=== PATIENT | male | born 1965 | race Caucasian/White ===

== ENCOUNTER 2016-10-18 17:11 | Emergency (ER) | payer BC ==
[~2016-10-18] VITALS: Ht 167.6 cm; Wt 81.1 kg
[~2016-10-18 17:11] MED LIST: ALL300 PO; ASPCH81 PO; EZET10TA63 PO; GLC500 PO; INDO1CAP34 PO; ULT50HP PO
[2016-10-18 17:15] VITALS: TEMP 36.3; Ht 167.6 cm; Wt 81.1 kg
[2016-10-18] MEDS ORDERED: ASPI-461 PO (17:56)
[2016-10-18] MEDS ORDERED: ALL300 PO (17:56)
[2016-10-18] MEDS ORDERED: METF1000 PO (17:56)
[2016-10-18 18:47] LABS: BASO % 1.2 %; BASO ABS # 0.09 K/uL (0-0.2); COMPLETE YES; EOS % 2.2 %; HEMATOCRIT 40.8 % (42-52); IG% 0.1 %; LYMPH % 31.3 %; MEAN CELL VOLUME 85.9 fL (80-100); MEAN CORPUSCULAR HEMOGLOBIN 31.4 pg (25-34); MEAN CORPUSCULAR HGB CONC 36.5 g/dl (32-36); MEAN PLATELET VOLUME 10.3 fL (7.4-10.4); MONO % 5.2 %; PLATELET COUNT 185 K/uL (130-400); RED BLOOD COUNT 4.75 M/uL (4.7-6.1); WHITE BLOOD COUNT 7.68 K/uL (4.8-10.8)
--- NOTE | 2016-10-18 18:48 | DIAGNOSTIC IMAGING REPORT ---
CHEST ONE VIEW PORTABLE CLINICAL HISTORY: EVALUATE ALTERED MENTAL STATUS/WEAKNESS dyspnea COMPARISON STUDY: No previous studies for comparison. FINDINGS: The bones soft tissues and hemidiaphragms are normal. The cardiomediastinal silhouette is normal. The lungs are clear. The pulmonary vasculature is normal. IMPRESSION: Negative chest. Electronically signed by: Trever Issa M.D. 10/18/2016 6:46 PM Dictated Date/Time: 10/18/2016 6:45 PM
[2016-10-18 18:58] LABS: PROTHROMBIN TIME (PATIENT) 10.5 SECONDS (9.0-12.0)
[2016-10-18 19:03] LABS: URINE APPEARANCE CLEAR (CLEAR); URINE BILIRUBIN NEG (NEG); URINE COLOR YELLOW; URINE EPITHELIAL CELL AUTO 0-5 /lpf (0-5); URINE NITRITE NEG (NEG); URINE PH 7.5 (4.5-7.5); UROBILINOGEN NEG (NEG); ZZUR CULT IF INDIC CLEAN CATCH NO
[2016-10-18 19:04] LABS: MANUAL MICROSCOPIC REQUIRED? NO; REVIEW REQ? NO
[2016-10-18 19:08] LABS: ALT/SGPT 45 U/L (12-78); BLOOD UREA NITROGEN 9 mg/dl (7-18); BUN/CREATININE RATIO 9.7 (10-20); CALCIUM 9.7 mg/dl (8.5-10.1); CARBON DIOXIDE 27 mmol/L (21-32); CHLORIDE 103 mmol/L (98-107); CREATININE 0.88 mg/dl (0.60-1.40); GLUCOSE 98 mg/dl (70-99); MAGNESIUM 2.3 mg/dl (1.8-2.4); POTASSIUM 3.7 mmol/L (3.5-5.1); SODIUM 140 mmol/L (136-145)
--- NOTE | 2016-10-18 19:11 | DIAGNOSTIC IMAGING REPORT ---
HEAD CT NONCONTRAST CT DOSE: 601.98 mGy.cm HISTORY: EVALUATE ALTERED MENTAL STATUS/WEAKNESS TECHNIQUE: Multiaxial CT images of the head were performed without the use of intravenous contrast. Comparison: None. Findings: The paranasal sinuses and mastoid air cells are clear. The calvarium and skull base are intact. The ventricles and sulci are within normal limits. There is no mass, hematoma, midline shift, or acute infarct. Impression: No acute intracranial abnormality. Electronically signed by: Trever Issa M.D. 10/18/2016 7:10 PM Dictated Date/Time: 10/18/2016 7:10 PM
[2016-10-18 19:17] LABS: ALKALINE PHOSPHATASE 75 U/L (45-117); AST/SGOT 23 U/L (15-37); CKMB/CK RATIO 1.1 (0-3.0); THYROID STIMULATING HORMONE 0.963 uIu/ml (0.300-4.500)
--- NOTE | 2016-10-18 19:50 | DIAGNOSTIC IMAGING REPORT ---
BILATERAL CAROTID DOPPLER STUDY HISTORY: Mental status change ti COMPARISON: None. TECHNIQUE: Real-time, grayscale, and color Doppler sonography of the carotid arteries was performed. Imaging reviewed in the transverse and longitudinal planes. All measurements were calculated based on NASCET criteria. FINDINGS: Antegrade flow is seen in the bilateral vertebral arteries. The brachial pressures are hemodynamically similar. The peak systolic velocity within the right ICA is 74. The right systolic ratio is 1.1. The peak systolic velocity within the left ICA is 58. The left systolic ratio is 0.8. IMPRESSION: No hemodynamically significant stenosis seen within the carotid arteries. Electronically signed by: Trever Issa M.D. 10/18/2016 7:49 PM Dictated Date/Time: 10/18/2016 7:48 PM
--- NOTE | 2016-10-18 20:17 | EMERGENCY ROOM VISIT NOTE ---
History Report prepared by Norma: Rakesh Desouza Under the Supervision of: Dr. Mehul Miller D.O. First contact with patient: 17:54 Chief Complaint: REFERRED BY DOCTOR Stated Complaint: L EYE BLEED, POSSIBLE STROKE- PHYSICIAN REFERRED History of Present Illness The patient is a 50 year old male who presents to the Emergency Room with complaints of intermittent left eye "shadow" beginning 2-3 weeks prior to arrival. The patient states he first noticed a shadow in his left eye while driving, and then it went away. He notes he experiences this "shadow" 2-3 times a day. The patient notes he saw his eye doctor, Dr. Baptiste, at [facility] today for his diabetic eye exam, and she found an occlusion. 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 The patient denies experiencing any other symptoms. He notes he takes a baby aspirin a day. 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 A total of 10 systems reviewed and were otherwise negative. Past Medical & Surgical Medical Problems: (1) Diab Nataly Wo Compl, Type Ii Or Unspec Type, Uncontrolled (2) Diverticulitis Colon (W/O Ment Of Hemorrhage) (3) Gout Nos (4) Lumbago (5) Mixed Hyperlipidemia (6) Pneumonia (7) Tobacco Use Disorder Surgical Problems: (1) No significant past surgical history Family History Diabetes mellitus Heart disease Social History Smoking Status: Never Smoker Alcohol Use: occasionally Drug Use: none Marital Status: Housing Status: lives with family Occupation Status: employed Current/Historical Medications Scheduled Allopurinol (Allopurinol), 300 MG PO DAILY Aspirin (Aspirin), 81 MG PO DAILY Ezetimibe (Zetia), 10 MG PO DAILY Metformin Hcl (Glucophage), 1,000 MG PO DAILY Scheduled PRN Indomethacin (Indomethacin), 50 MG PO TID PRN for INFLAMMATIOM Allergies Coded Allergies: Sulfamethoxazole (Verified Allergy, Unknown, 10/18/16) Replaces SULFAMETHOXAZ Trimethoprim (Verified Allergy, Unknown, 10/18/16) Replaces SULFAMETHOXAZ Physical Exam Vital Signs Date Time Temp Pulse Resp B/P Pulse Ox O2 Delivery O2 Flow Rate FiO2 10/18/16 19:49 65 150/89 100 Room Air 10/18/16 18:18 61 10/18/16 17:15 36.3 79 18 155/94 99 Room Air Physical Exam VITAL SIGNS: were reviewed as above. GENERAL:Non-toxic in appearance. SKIN: Warm dry and pink. HEAD: Normocephalic and atraumatic. OROPHARYNX: Is clear and moist NECK: Supple without lymphadenopathy or meningismus. LUNGS: clear. HEART: Regular rate and rhythm. ABDOMEN: Soft and nontender. EXTREMITIES: Warm and well perfused. NEUROLOGICALLY: Awake alert and oriented without focal deficit. Cranial nerves 2 -12 are intact. There is no pronator drift. Cerebellar testing is within normal limits. There is no nystagmus. There is no facial droop. Speech is clear. Vision is grossly normal. MUSCULOSKELETAL: Good muscle tone. No evidence of trauma. Medical Decision & Procedures ER Provider Diagnostic Interpretation: Radiology results as stated below per my review and radiologist interpretation: CHEST ONE VIEW PORTABLE CLINICAL HISTORY: EVALUATE ALTERED MENTAL STATUS/WEAKNESS dyspnea COMPARISON STUDY: No previous studies for comparison. FINDINGS: The bones soft tissues and hemidiaphragms are normal. The cardiomediastinal silhouette is normal. The lungs are clear. The pulmonary vasculature is normal. IMPRESSION: Negative chest. Electronically signed by: Trever Issa M.D. 10/18/2016 6:[address] CT DOSE: 601.98 mGy.cm HISTORY: EVALUATE ALTERED MENTAL STATUS/WEAKNESS TECHNIQUE: Multiaxial CT images of the head were performed without the use of intravenous contrast. Comparison: None. Findings: The paranasal sinuses and mastoid air cells are clear. The calvarium and skull base are intact. The ventricles and sulci are within normal limits. There is no mass, hematoma, midline shift, or acute infarct. Impression: No acute intracranial abnormality. Electronically signed by: Trever Issa M.D. 10/18/2016 7:10 PM BILATERAL CAROTID DOPPLER STUDY HISTORY: Mental status change ti COMPARISON: None. TECHNIQUE: Real-time, grayscale, and color Doppler sonography of the carotid arteries was performed. Imaging reviewed in the transverse and longitudinal planes. All measurements were calculated based on NASCET criteria. FINDINGS: Antegrade flow is seen in the bilateral vertebral arteries. The brachial pressures are hemodynamically similar. The peak systolic velocity within the right ICA is 74. The right systolic ratio is 1.1. The peak systolic velocity within the left ICA is 58. The left systolic ratio is 0.8. IMPRESSION: No hemodynamically significant stenosis seen within the carotid arteries. Electronically signed by: Trever Issa M.D. 10/18/2016 7:49 PM Laboratory Results 10/18/16 18:30 Red Blood Count 4.75, Mean Corpuscular Volume 85.9, Mean Corpuscular Hemoglobin 31.4, Mean Corpuscular Hemoglobin Concent 36.5, Mean Platelet Volume 10.3, Neutrophils (%) (Auto) 60.0, Lymphocytes (%) (Auto) 31.3, Monocytes (%) (Auto) 5.2, Eosinophils (%) (Auto) 2.2, Basophils (%) (Auto) 1.2, Neutrophils # (Auto) 4.61, Lymphocytes # (Auto) 2.40, Monocytes # (Auto) 0.40, Eosinophils # (Auto) 0.17, Basophils # (Auto) 0.09 10/18/16 18:30 Test 10/18/16 18:30 10/18/16 18:40 10/18/16 19:45 White Blood Count 7.68 K/uL (4.8-10.8) Red Blood Count 4.75 M/uL (4.7-6.1) Hemoglobin 14.9 g/dL (14.0-18.0) Hematocrit 40.8 % (42-52) Mean Corpuscular Volume 85.9 fL (80-100) Mean Corpuscular Hemoglobin 31.4 pg (25-34) Mean Corpuscular Hemoglobin Concent 36.5 g/dl (32-36) Platelet Count 185 K/uL (130-400) Mean Platelet Volume 10.3 fL (7.4-10.4) Neutrophils (%) (Auto) 60.0 % Lymphocytes (%) (Auto) 31.3 % Monocytes (%) (Auto) 5.2 % Eosinophils (%) (Auto) 2.2 % Basophils (%) (Auto) 1.2 % Neutrophils # (Auto) 4.61 K/uL (1.4-6.5) Lymphocytes # (Auto) 2.40 K/uL (1.2-3.4) Monocytes # (Auto) 0.40 K/uL (0.11-0.59) Eosinophils # (Auto) 0.17 K/uL (0-0.5) Basophils # (Auto) 0.09 K/uL (0-0.2) RDW Standard Deviation 39.2 fL (36.4-46.3) RDW Coefficient of Variation 12.4 % (11.5-14.5) Immature Granulocyte % (Auto) 0.1 % Immature Granulocyte # (Auto) 0.01 K/uL (0.00-0.02) Prothrombin Time 10.5 SECONDS (9.0-12.0) Prothromb Time International Ratio 1.0 (0.9-1.1) Activated Partial Thromboplast Time 24.7 SECONDS (21.0-31.0) Partial Thromboplastin Ratio 1.0 Anion Gap 10.0 mmol/L (3-11) Est Creatinine Clear Calc Drug Dose 98.2 ml/min Estimated GFR () 114.5 Estimated GFR (Non- 98.8 BUN/Creatinine Ratio 9.7 (10-20) Calcium Level 9.7 mg/dl (8.5-10.1) Magnesium Level 2.3 mg/dl (1.8-2.4) Total Bilirubin 0.5 mg/dl (0.2-1) Direct Bilirubin < 0.1 mg/dl (0-0.2) Aspartate Amino Transf (AST/SGOT) 23 U/L (15-37) Alanine Aminotransferase (ALT/SGPT) 45 U/L (12-78) Alkaline Phosphatase 75 U/L (45-117) Total Creatine Kinase 87 U/L (39-308) Creatine Kinase MB 1.0 ng/ml (0.5-3.6) Creatine Kinase MB Ratio 1.1 (0-3.0) Troponin I < 0.015 ng/ml (0-0.045) Total Protein 7.9 gm/dl (6.4-8.2) Albumin 4.8 gm/dl (3.4-5.0) Lipase 286 U/L (73-393) Thyroid Stimulating Hormone (TSH) 0.963 uIu/ml (0.300-4.500) Urine Color YELLOW Urine Appearance CLEAR (CLEAR) Urine pH 7.5 (4.5-7.5) Urine Specific [place] 1.000 (1.000-1.030) Urine Protein NEG (NEG) Urine Glucose (UA) NEG (NEG) Urine Ketones NEG (NEG) Urine Occult Blood NEG (NEG) Urine Nitrite NEG (NEG) Urine Bilirubin NEG (NEG) Urine Urobilinogen NEG (NEG) Urine Leukocyte Esterase NEG (NEG) Urine WBC (Auto) 0 /hpf (0-5) Urine RBC (Auto) 0-4 /hpf (0-4) Urine Hyaline Casts (Auto) 0 /lpf (0-5) Urine Epithelial Cells (Auto) 0-5 /lpf (0-5) Urine Bacteria (Auto) NEG (NEG) Laboratory results as stated above per my review. ECG Indication: other (vision change) Rate (beats per minute): 60 Rhythm: normal sinus Findings: no ectopy, other (no acute injury) ED Course 1755: Previous medical records were reviewed. The patient was evaluated in room A9B. A complete history and physical examination was performed. 2018: On reevaluation, the patient is doing well. I discussed the results and findings with the patient. He verbalized agreement of the treatment plan. The patient was discharged home. Medical Decision Differential includes acute coronary syndrome, myocardial infarction, CVA, TIA, anemia, infection, pneumonia, UTI, pyelonephritis, poor nutrition, dehydration, electrolyte disturbance,hypoglycemia. This is a 50-year-old male who presents to the ED with a chief complaint of needing an evaluation for CVA. The patient had an optometry appointment today. 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 The patient was told to follow-up with PCP for evaluation but was unable to be checked tomorrow. The patient was referred here. The patient has no stroke symptoms. He has had some haziness in his left eye for several weeks. Neuro exam today is normal. The patient has no specific complaints. A carotid Doppler study was negative. CT scan of the brain was negative for acute disease as well as a chest x-ray. An EKG shows a normal sinus rhythm. Blood work including a CBC, complete metabolic panel, troponin, TSH were normal as was urine. The patient was told the results. He will continue taking an aspirin a day. He is to follow-up with his PCP for recheck next week. Impression Primary Impression: Stroke-like episode Scribe Attestation The scribe's documentation has been prepared under my direction and personally reviewed by me in its entirety. I confirm that the note above accurately reflects all work, treatment, procedures, and medical decision making performed by me. Departure Information Dispostion Home / Self-Care Referrals Reilly Ag M.D. (PCP) Forms HOME CARE DOCUMENTATION FORM, IMPORTANT VISIT INFORMATION, WORK / SCHOOL INSTRUCTIONS Patient Instructions My [facility] Additional Instructions Follow-up with your doctor next week for recheck. Return for any concerns. Continue aspirin.
[2016-10-18 20:31] VITALS: BP 136/89; PULSE 60; O2SAT 99
== END 2016-10-18 20:32 | disposition home or self-care (01) ==
LOC: C.EDB 17:12 → C.EDA 20:32
DX: H57.8 Other specified disorders of eye and adnexa (principal); M10.9 Gout, unspecified; E11.9 Type 2 diabetes mellitus without complications; E78.5 Hyperlipidemia, unspecified; F17.200 Nicotine dependence, unspecified, uncomplicated; Z79.82 Long term (current) use of aspirin

== ENCOUNTER → 2016-11-01 | Outpatient (CLI) | payer BC ==
[~2016-11-01] MED LIST changes: -ASPCH81 PO; +ASPI-461 PO; -GLC500 PO; +METF1000 PO; -ULT50HP PO
[2016-11-01 12:28] LABS: ESTIMATED AVERAGE GLUCOSE 148 mg/dl; HA1C FLAG Normal (Normal)
[2016-11-01 12:31] LABS: CHOLESTEROL/HDL RATIO 3.6
== END | disposition home or self-care (01) ==
LOC: C.LABPVFM 10:09
PROVIDERS: ATTEND Family Medicine
DX: E11.9 Type 2 diabetes mellitus without complications (principal); E78.2 Mixed hyperlipidemia

== ENCOUNTER → 2017-04-16 | Outpatient (CLI) | payer BC ==
[2017-04-16 18:06] LABS: BLOOD UREA NITROGEN 12 mg/dl (7-18); BUN/CREATININE RATIO 13.1 (10-20); CALCIUM 9.2 mg/dl (8.5-10.1); CARBON DIOXIDE 24 mmol/L (21-32); CHLORIDE 105 mmol/L (98-107); CREATININE 0.94 mg/dl (0.60-1.40); GLUCOSE 167 mg/dl (70-99); POTASSIUM 3.8 mmol/L (3.5-5.1); SODIUM 137 mmol/L (136-145); URIC ACID 4.9 mg/dl (2.6-7.2)
[2017-04-16 22:08] LABS: LYME DISEASE AB IGG NEG (NEG); LYME DISEASE AB IGM NEG (NEG)
[2017-04-17 06:12] LABS: ESTIMATED AVERAGE GLUCOSE 151 mg/dl; HA1C FLAG Normal (Normal)
== END | disposition home or self-care (01) ==
LOC: C.LABPVFM 15:10
PROVIDERS: ATTEND Family Medicine
DX: M79.1 Myalgia (principal); E11.9 Type 2 diabetes mellitus without complications; M10.9 Gout, unspecified

== ENCOUNTER → 2017-10-10 | Outpatient (CLI) | payer BC ==
[2017-10-10 17:44] LABS: HEMOGLOBIN 14.5 g/dL (14.0-18.0); MEAN CELL VOLUME 88.7 fL (80-100); MEAN CORPUSCULAR HEMOGLOBIN 32.2 pg (25-34); MEAN CORPUSCULAR HGB CONC 36.3 g/dl (32-36); MEAN PLATELET VOLUME 10.5 fL (7.4-10.4); PLATELET COUNT 190 K/uL (130-400); RED CELL DISTRIBUTION WIDTH CV 12.7 % (11.5-14.5); RED CELL DISTRIBUTION WIDTH SD 40.8 fL (36.4-46.3); WHITE BLOOD COUNT 7.05 K/uL (4.8-10.8)
[2017-10-10 18:06] LABS: ALBUMIN 4.2 gm/dl (3.4-5.0); ALT/SGPT 43 U/L (12-78); AST/SGOT 19 U/L (15-37); BLOOD UREA NITROGEN 15 mg/dl (7-18); CALCIUM 9.1 mg/dl (8.5-10.1); CARBON DIOXIDE 24 mmol/L (21-32); CREATININE 0.97 mg/dl (0.60-1.40); GLUCOSE 125 mg/dl (70-99); POTASSIUM 3.8 mmol/L (3.5-5.1); SODIUM 135 mmol/L (136-145)
[2017-10-10 18:17] LABS: ALKALINE PHOSPHATASE 71 U/L (45-117); TOTAL PROTEIN 7.7 gm/dl (6.4-8.2)
== END | disposition home or self-care (01) ==
LOC: C.LABPVFM 14:52
PROVIDERS: ATTEND Family Medicine
DX: M10.9 Gout, unspecified (principal)